=== PATIENT | female | born 1945 | race Caucasian/White ===

== ENCOUNTER → 2017-04-05 | Outpatient (CLI) | payer MEDICARE, MEDICAID | LOC: RAD 10:28 | PROVIDERS: ATTEND Nurse Practitioner Family | DX: Z12.31 Encounter for screening mammogram for malignant neoplasm of breast (principal) | CPT/HCPCS: 77067 ==

== ENCOUNTER → 2017-11-11 | Outpatient (CLI) | payer MEDICARE, MEDICAID ==
--- NOTE | 2017-11-11 13:56 | Diagnostic Imaging Report ---
EXAMINATION: Ultrasound soft tissue head and neck. INDICATION: Pain at base of left skull. FINDINGS: By history, the patient has had treatment for skin cancer near the skull base on the left. On this study, there is no discrete solid or cystic mass in the soft tissues. There is no sign of an abscess either. IMPRESSION: 1. There is no acute abnormality or evidence for a mass lesion. 2. If clinical concern regarding an underlying abnormality persists, then CT of the neck would be recommended for additional study. Dictated by: Dictated on workstation # [id number]
== END ==
LOC: RAD 11:25
PROVIDERS: ATTEND Nurse Practitioner Family
DX: M54.2 Cervicalgia (principal); R51 Headache; Z85.828 Personal history of other malignant neoplasm of skin
CPT/HCPCS: 76536

== ENCOUNTER → 2018-05-12 | Outpatient (CLI) | payer MEDICARE, MEDICAID ==
--- NOTE | 2018-05-12 19:38 | Diagnostic Imaging Report ---
INDICATION: Questionable deodorant artifact in the right axilla. Patient presents for additional views. COMPARISON: Correlation is made with screening mammogram from 04/27/2018. EXAMINATION: 2D and 3D unilateral right diagnostic mammography was performed including MLO 3D and 2D views. FINDINGS: The area of punctate opacity in the right axilla has resolved and most likely represented deodorant artifact. No microcalcifications are seen. IMPRESSION: BI-RADS 2. Additional views are unremarkable. Patient may return to routine annual screening mammography. Dictated by: Dictated on workstation # [id number]
== END ==
LOC: RAD 11:59
PROVIDERS: ATTEND Nurse Practitioner Family
DX: Z12.31 Encounter for screening mammogram for malignant neoplasm of breast (principal)

== ENCOUNTER → 2019-07-04 | Outpatient (CLI) | payer MEDICARE, MEDICAID ==
--- NOTE | 2019-07-04 11:17 | Diagnostic Imaging Report ---
INDICATION: Screening The current study was also evaluated with a Computer Aided Detection (CAD) system. 3-D Tomographic imaging was also performed. INDICATION: Screening. Comparison made with prior examination of 04/27/2018, 04/05/2017 and 01/03/2016 FINDINGS: The fibroglandular tissue is heterogeneously dense bilaterally. There are benign type calcifications. There is no dominant mass, spiculated lesions or suspicious calcination identified. Skin, nipples and axilla are unremarkable. IMPRESSION: Category 2 benign. ACR BI-RADS Category 2: Benign findings. Result letter will be mailed to the patient. Note: At least 10% of breast cancer is not imaged by mammography. Dictated by: Dictated on workstation # [id number]
== END ==
LOC: RAD 09:38
PROVIDERS: ATTEND Nurse Practitioner Family
DX: Z12.31 Encounter for screening mammogram for malignant neoplasm of breast (principal)
CPT/HCPCS: 77067

== ENCOUNTER 2020-06-27 05:34 | Outpatient (RCR) | payer MEDICARE, MEDICAID ==
[~2020-06-27] VITALS: Ht 155 cm; Wt 89.1 kg
[~2020-06-27 05:34] MED LIST: ACHD5005 PO; ALBU1.25 INH; ATOR40TA70 PO; CELE200C PO; CETI10TA49 PO; CYCL10TA9 PO; ESZO1TAB10 PO; FLT11013 IH; OMEG100032 PO; PANT40TA52 PO; UMEC62.5 IH
== END 2020-06-27 11:36 | disposition home or self-care (01) ==
LOC: PREOP 05:34
PROVIDERS: ATTEND Surgery
DX: Z01.812 Encounter for preprocedural laboratory examination (principal); K62.89 Other specified diseases of anus and rectum; Z20.828 Contact with and (suspected) exposure to other viral communicable diseases
CPT/HCPCS: 87635

== ENCOUNTER 2020-07-01 07:32 | Day surgery (SDC) | payer MEDICARE, MEDICAID ==
[~2020-07-01] VITALS: Ht 155 cm; Wt 89.1 kg
[2020-07-01] MEDS ORDERED: LACTATED RINGERS 1,000 ML IV ONE (07:37)
[2020-07-01] MEDS ORDERED: LACTATED RINGERS 1,000 ML IV STA (07:41)
[2020-07-01] MEDS ORDERED: MIDAZOLAM 2 MG/2 ML (VERSED) VIAL ONE (07:54)
[2020-07-01] MEDS ORDERED: PROPOFOL INJECTION 50 ML IV ONE ×3 (07:54→09:24)
[2020-07-01 07:57] VITALS: BP 145/78
--- NOTE | 2020-07-01 08:12 | Progress Note-Pre Operative ---
Pre-Operative Progress Note H&P Reviewed The H&P was reviewed, patient examined and no changes noted. Time Seen by Provider: 08:04 Date H&P Reviewed: Jul 01, 2020 Time H&P Reviewed: 08:05 Pre-Operative Diagnosis: +ColBRENT Sanchez DO Jul 01, 2020 08:12
[2020-07-01 09:35] VITALS: BP 142/61
[2020-07-01 09:40] VITALS: BP 135/65
--- NOTE | 2020-07-01 09:43 | Progress Note-Post Operative ---
Post-Operative Progess Note Surgeon (s)/Pump Technician (s) Surgeon BRENT DERAS DO Pump Technician: YESIKA Montalvo Pre-Operative Diagnosis +Cologuard Post-Operative Diagnosis colon polyps diverticula hemorrhoids Procedure & Operative Findings Date of Procedure 07/01/20 Procedure Performed/Findings colon with hot bx Anesthesia Type IV sedation by OUTSIDE SALES REPRESENTATIVE Estimated Blood Loss Estimated blood loss (mL): scant Specimens/Packing Specimens Removed transverse colon polyp sigmoid polyp BRENT DERAS DO Jul 01, 2020 09:43
--- NOTE | 2020-07-01 09:44 | Endoscopy Discharge Instruct ---
Endo Procedure/Findings Findings 2.: Diverticulosis 3.: Internal Hemorrhoids Discharge Instructions - Activity: You might feel a little sleepy until tomorrow. This is due to the medicine you received to relax you. Until tomorrow, you should: NOT drive a car, operate machinery or power tools. NOT drink any alcoholic beverages. NOT make any important decisions or sign importortant papers. Do not return to work until tomorrow, unless otherwise instructed. Resume previous activities tomorrow. Diet: Start by taking liquids. If you tolerate liquids, advance to solid food. 1.: Colonscopy in 5 years Notify Physician - If you experience excessive bleeding, unusual abdominal pain, fever, or chest pain, contact your doctor immediately. BRENT DERAS DO Jul 01, 2020 09:44
[2020-07-01 09:45] VITALS: BP 116/91
[2020-07-01 09:50] VITALS: BP 116/91
[2020-07-01 10:30] VITALS: BP 138/79
--- NOTE | 2020-07-01 14:57 | Anesthesia-General Post-Op ---
MAC Patient Condition Mental Status/LOC: Same as Preop Cardiovascular: Satisfactory Nausea/Vomiting: Absent Respiratory: Satisfactory Pain: Controlled Complications: Absent Post Op Complications Complications None Follow Up Care/Instructions Patient Instructions None needed. Anesthesiology Discharge Order Discharge Order Patient is doing well, no complaints, stable vital signs, no apparent adverse anesthesia problems. No complications reported per nursing. WILLIAM PADILLA CRNA Jul 01, 2020 14:57
--- NOTE | 2020-07-02 04:02 | OPERATIVE REPORT ---
DATE OF SERVICE: 07/01/2020 PREOPERATIVE DIAGNOSIS: Positive Cologuard. POSTOPERATIVE DIAGNOSES: Colon polyps, diverticula, internal hemorrhoids. PROCEDURE: Colonoscopy with hot biopsy. SURGEON: Gamaliel Reyes DO DRAIN TILER: Angelica Arceo MS3. ANESTHESIA: IV sedation by the CHURN TENDER. SPECIMEN: Transverse colon polyp and the sigmoid colon polyp. BLOOD LOSS: Scant. FLUIDS: Per anesthesia. POSTOPERATIVE CONDITION: Stable. INDICATION FOR PROCEDURE: The patient is a 74-year-old female who had a positive Cologuard and needed a colonoscopy. FINDINGS: The patient had 2 polyps, one in the transverse colon and one in the sigmoid colon, but hot biopsies performed. PROCEDURE NOTE: After informed consent was obtained, the patient was brought to the endoscopy suite, placed in bed in left lateral decubitus position. She was administered IV sedation by the CHURN TENDER who then monitored her vitals the entire time, heart rate, blood pressure and pulse ox and the scope was inserted, pushed all the way into about 160 cm; on the way in, took a picture of the diverticulum, noted a polyp in the ascending colon. Elected to do a hot biopsy of this, then pushed into the cecum, took a picture of appendiceal orifice, noted the ileocecal valve and then slowly withdrew the scope insufflating to look circumferentially at the erazo looking at the cecum, up the ascending colon to the hepatic flexure, then down the transverse colon, splenic flexure, into the descending colon down in the sigmoid. In the sigmoid, saw what looked like a collection of small polyps, did a hot biopsy here, then down into the rectum, retroflexed in rectal vault, saw some minimal internal hemorrhoids, took a picture of this and then removed the scope. The patient tolerated the procedure. She was recovered in endoscopy suite. Job ID: [id number] DocumentID: [id number] Dictated Date: 07/01/2020 17:28:30 Amusement Ride Inspector Date: 07/02/2020 04:02:04 Dictated By: GAMALIEL REYES DO
== END 2020-07-01 10:30 | disposition home or self-care (01) ==
LOC: ENDO 07:32
PROVIDERS: ATTEND Surgery
DX: D12.3 Benign neoplasm of transverse colon (principal); K63.5 Polyp of colon; K57.30 Diverticulosis of large intestine without perforation or abscess without bleeding; K64.8 Other hemorrhoids; K21.9 Gastro-esophageal reflux disease without esophagitis; K62.89 Other specified diseases of anus and rectum; J44.9 Chronic obstructive pulmonary disease, unspecified; E78.5 Hyperlipidemia, unspecified; I10 Essential (primary) hypertension; E66.9 Obesity, unspecified; Z68.37 Body mass index [BMI] 37.0-37.9, adult; F17.210 Nicotine dependence, cigarettes, uncomplicated; Z79.51 Long term (current) use of inhaled steroids

== ENCOUNTER → 2021-02-17 | Outpatient (CLI) | payer MEDICARE, MEDICAID ==
--- NOTE | 2021-02-18 12:50 | Diagnostic Imaging Report ---
INDICATION: Routine screening. Comparison is made with prior mammogram from 07/04/2019 and 04/27/2018. 2-D and 3-D bilateral screening mammography was performed with CAD. Both breasts are heterogeneously dense, limiting the sensitivity of mammography. There are benign calcifications scattered throughout both breasts. No mass or malignant appearing microcalcifications are seen. Axillae are unremarkable. IMPRESSION: BI-RADS Category 2 No mammographic features suspicious for malignancy are identified. ACR BI-RADS Category 2: Benign findings. Result letter will be mailed to the patient. Note: At least 10% of breast cancer is not imaged by mammography. Dictated by: Dictated on workstation # [id number]
== END ==
LOC: CARD 14:30
PROVIDERS: ATTEND Nurse Practitioner Family
DX: Z12.31 Encounter for screening mammogram for malignant neoplasm of breast (principal); I35.2 Nonrheumatic aortic (valve) stenosis with insufficiency
CPT/HCPCS: 77063; 77067; 93306

== ENCOUNTER 2021-05-20 11:00 | Day surgery (SDC) | payer MEDICARE, MEDICAID ==
[~2021-05-20] VITALS: Ht 152 cm; Wt 88.0 kg
[2021-05-20] VITALS (11 sets, daily range): BP systolic 116–185; BP diastolic 57–88
[2021-05-20 09:40] LABS: ALBUMIN 3.9 GM/DL (3.2-4.5); BILIRUBIN,TOTAL 0.5 MG/DL (0.1-1.0); CALCIUM 9.1 MG/DL (8.5-10.1); CREATININE SERUM 0.83 MG/DL (0.60-1.30); POTASSIUM 4.1 MMOL/L (3.6-5.0); TOTAL PROTEIN 6.9 GM/DL (6.4-8.2)
[2021-05-20 09:50] LABS: HEMATOCRIT 46 % (35-52); HEMOGLOBIN 14.8 g/dL (11.5-16.0); MEAN CORPUSCULAR HEMOGLOBIN 31 pg (25-34); MEAN CORPUSCULAR HGB CONC 32 g/dL (32-36); MEAN CORPUSCULAR VOLUME 98 fL (80-99); MEAN PLATELET VOLUME 11.7 fL (9.0-12.2); PLATELET COUNT 206 10^3/uL (130-400); WHITE BLOOD COUNT 10.9 10^3/uL (4.3-11.0)
[2021-05-20 09:53] LABS: INR 0.9 (0.8-1.4); PROTHROMBIN TIME PATIENT 12.6 SEC (12.2-14.7)
[~2021-05-20 11:00] MED LIST changes: +CARB15DR OU; +DICL20GE TP; +FLUT9.9S NSEACH; +HEParin (CATH LAB) 2,000 ML IV ONE; +LEVA1.2543 NEB; +LIDOCAINE 1% INJ 20 ML 20 ML VIAL ONE; +LOSA50TA63 PO; +NF-XOP-HFA INH; +NS IV 1000 ML 1,000 ML IV SCH; +NS IV 1000 ML 1,000 ML ONE; +OLOP5DRO13 OU; +PANT20TA18 PO
--- NOTE | 2021-05-20 11:25 | Cardiac Procedure Note-CS/ASA ---
Pre-Procedure Note Pre-Op Procedure Note H&P Reviewed The H&P was reviewed, patient examined and no changes noted. Date H&P Reviewed: May 20, 2021 Time H&P Reviewed: 10:30 Conscious Sedation Pre-Proced Time 10:30 ASA Score 4 For ASA 3 and 4: Consider anesthesia and medical clearance. Also, for patients with a history of failed moderate sedation consider anesthesia. Airway Lungs Heart ASA score ASA 1: a normal healthy patient ASA 2: a patient with a mild systemic disease (mid diabetes, controlled hypertension, obesity ASA 3: a patient with a severe systemic disease that limits activity (angina, COPD, prior Myocardial infarction) ASA 4: a patient with an incapacitating disease that is a constant threat to life (CHF, renal failure) ASA 5: a moribund patient not expected to survive 24 hrs. (ruptured aneurysm) ASA 6: a declared brain- patient whose organs are being harvested. For emergent operations, add the letter E after the classification Mallampati Classification Grade 2 Sedation Plan Analgesia, Amnesia, Plan communicated to team members, Discussed options with patient/fam, Discussed risks with patient/fam The patient is an appropriate candidate to undergo the planned procedure, sedation, and anesthesia. The patient immediately re-assessed prior to indication. ELIZABET PRATHER MD FACP FAC CCDS May 20, 2021 11:25
[2021-05-20] MEDS ORDERED: FURO40TA4 PO (11:29)
[2021-05-20] MEDS ORDERED: ASPI-999 PO (11:29)
[2021-05-20] MEDS ORDERED: POTA10TA36 PO (11:29)
[2021-05-20] MEDS ORDERED: NS IV 1000 ML 1,000 ML IV SCH (11:30)
[2021-05-20] MEDS ORDERED: PATIENT MAY USE OWN MEDS, ALL PO SCH (11:30)
--- NOTE | 2021-05-20 11:30 | Discharge Inst-Cardiology ---
Discharge Inst-Cardiac Discharge Medications New Medications: Aspirin (Aspirin) 81 Mg Tab.chew 81 MG PO DAILY for 30 Days, #30 TAB 3 Refills Furosemide (Furosemide) 40 Mg Tablet 40 MG PO DAILY, #30 TAB 3 Refills Potassium Chloride (Potassium Chloride) 10 Meq Tab.er.prt 10 MEQ PO DAILY, #30 TAB 3 Refills Continued Medications: Atorvastatin Calcium (Atorvastatin Calcium) 40 Mg Tablet 40 MG PO HS, TAB Carboxymethylcellulose Sodium (Refresh Tears) 15 Ml Drops 1-2 DROP OU UD PRN for DRY EYES, DROPS Celecoxib (Celebrex) 200 Mg Capsule 200 MG PO DAILY, CAP Cetirizine HCl (Zyrtec) 10 Mg Tablet 10 MG PO DAILY, TAB Diclofenac Sodium (Voltaren Arthritis Pain) 20 Gm Gel..gram. 1 APPLIC TP Q8H PRN for PAIN-BREAKTHROUGH, EA Fluticasone Propionate (Flovent Hfa 110 mcg) 1 Ea Aero 2 EA IH BID, EA Fluticasone Propionate (Flonase Allergy Relief) 9.9 Ml [place].susp 1 SPRAY NSEACH DAILY, EACH Hydrocodone/Acetaminophen (Hydrocodone-Acetamin 5-325 mg) 1 Each Tablet 0.5 EACH PO BID PRN for PAIN-MILD (1-4), TAB Levalbuterol HCl (Levalbuterol HCl) 1.25 Mg/3 Ml Vial.neb 1.25 MG NEB Q8H PRN for SHORTNESS OF BREATH, EA Levalbuterol Tartrate (Xopenex Hfa) 15 Gm Hfa.aer.ad 1 PUFF INH Q6H PRN for SHORTNESS OF BREATH, GM Losartan Potassium (Losartan Potassium) 50 Mg Tablet 50 MG PO DAILY, TAB Olopatadine HCl (Olopatadine HCl) 5 Ml Drops 1 DROP OU BID PRN for ALLERGY SYMPTOMS, DROPS Pantoprazole Sodium (Pantoprazole Sodium) 20 Mg Tablet.dr 20 MG PO DAILY, TAB Umeclidinium Alpha (Incruse Ellipta) 62.5 Mcg Blst.w.dev 1 PUFF IH DAILY, ELIZABET CYR MD [facility] CCDS May 20, 2021 11:30
--- NOTE | 2021-05-20 11:30 | Discharge Inst-Post CATH ---
Discharge Inst-CATH/EP Post Cardiac Cath/EP D/C Inst Follow Up/Plan F/u with Dr Becerra in one week ACTIVITY * Go Home directly and rest. * Limit activity of the leg (or wrist if it was used) for 7 days including aerobics, swimming, jogging, bicycling, etc. * Restrict stair-climbing for 7 days if possible, if not, climb up with your non-cath leg, then bring together on the same step. * Avoid lifting, pushing, pulling or excessive movement of the affected e xtremity for 7 days. * Customary sexual activity may be resumed after 2 days-use caution not to use a position that strains or causes pain to the affected extremity. * No driving for 24 hours. * NO SMOKING. * Avoid straining for bowel movements for 7 days. * Gentle walking on level ground is allowed. * Returning to work will depend on the type of procedure and the results. Your doctor will discuss this with you. CALL YOUR DOCTOR FOR ANY OF THE FOLLOWING: *If bleeding from the puncture site occurs- Apply gentle pressure to site with clean cloth and call your doctor or EMS. * If a knot or lump forms under the skin, increases in size, or causes pain. * If bruising appears to be worsening or moving further down your leg instead of disappearing. * Temperature above 101 F. CARE OF YOUR GROIN INCISION; * Bruising or purple discoloration of the skin near the puncture site is common. * You may shower only, no bathtub bathing for 5 days. Be careful to avoid slipping as your leg may feel stiff. * If a closure device was used on your femoral artery, please see the attached guide regarding care of the device and your leg. * Leave dressing on FOR 24 hours. CARE OF YOUR WRIST INCISION; * Bruising or purple discoloration of the skin near the puncture site is common. * You may shower. * DO NOT submerge wrist. * Leave dressing on FOR 24 hours. ELIZABET BECERRA MD FACP FAC CCDS May 20, 2021 11:30
--- NOTE | 2021-05-20 14:09 | CARDIAC CATHETERIZATION ---
DATE OF SERVICE: 05/20/2021 CARDIAC CATHETERIZATION REPORT INDICATION FOR PROCEDURE: The patient is a 75-year-old lady, who has shortness of breath that has been progressive. Echocardiography has indicated severe aortic stenosis with a valve area of approximately 0.9 cm2 and a mean gradient across the aortic valve approximately 40 mmHg. Because of progressive symptoms, cardiac catheterization was carried out today after having obtained an informed consent. DESCRIPTION OF PROCEDURE: She was brought to the cardiac catheterization laboratory in a fasting state. Right groin was prepared and draped in the usual sterile fashion. Lidocaine 1% was used for local anesthesia. Modified Seldinger technique was used to advance a 7-Filipino sheath in the right femoral vein and a 5-Filipino sheath in the right femoral artery. Angiography of the right femoral artery was carried out through the sheath. We used a 7-Filipino [place] catheter to carry out right heart catheterization and to measure oxygen saturation in the various right heart chambers. The cardiac output was also measured. The [place] catheter was then removed. We used a 5-Filipino pigtail catheter to carry out left heart catheterization. Left ventricular angiography was performed. We then pulled back across the aortic valve. The catheter was removed. We used a 5-Filipino JL4 catheter for left coronary angiography, 5-Filipino JR4 catheter for right coronary angiography. At the end of the procedure, Mynx was used to achieve arterial hemostasis and manual pressure was used to achieve venous hemostasis following sheath removal. She tolerated the procedure well. HEMODYNAMICS: The right atrial mean pressure is 17 mmHg. Pulmonary artery pressure is 52/23 with a mean of 34 mmHg. Mean pulmonary wedge pressure is 20 mmHg. Left ventricular pressure is 190/30. Ascending aortic pressure on pullback is 152/85 with a mean 82 mmHg. Cardiac output by thermodilution is 4.4. Cardiac index by thermodilution is 2.39. Aortic valve area is approximately 0.7 squared cm. Pulmonary vascular resistance is 4.57 Wood units. LEFT VENTRICULAR ANGIOGRAPHY: Left ventricular angiography was carried out in the right anterior oblique projection. Global left ventricular systolic function appears normal and ejection fraction is approximately 60%. CORONARY ANGIOGRAPHY: Left main coronary artery, left anterior descending and left circumflex artery do not exhibit angiographically significant disease. Right coronary artery is small in caliber and has stenosis of up to approximately 50% in its proximal, mid and distal portions. CONCLUSIONS: 1. Severe aortic stenosis. 2. Elevated right heart pressures and pulmonary hypertension, probably due to left heart failure as indicated by elevated pulmonary wedge pressure. 3. Normal global left ventricular systolic function with an ejection fraction of approximately 60%. 4. Elevated left ventricular end-diastolic pressure (30 mmHg). 5. Coronary artery disease primarily consisting of approximately 50% stenosis of the right coronary. The other coronary vessels have mild plaque. DISCUSSION AND RECOMMENDATIONS: Based on the results of the study, we are referring for consideration of aortic valve replacement. To treat congestive heart failure, we are initiating therapy with furosemide 40 mg a day along with potassium 10 mEq a day. Also, given moderate coronary artery disease, we are initiating therapy with aspirin 81 mg a day. Close outpatient followup is advised. Job ID: [id number] DocumentID: [id number] Dictated Date: 05/20/2021 11:38:44 Sand System Operator Date: 05/20/2021 14:07:36 Dictated By: ELIZABET PRATHER MD, MA, FACP, FACC,
== END 2021-05-20 14:45 | disposition home or self-care (01) ==
LOC: SDC 11:55 → CATH 14:45
PROVIDERS: ATTEND Internal Medicine Cardiovascular Disease
DX: I35.2 Nonrheumatic aortic (valve) stenosis with insufficiency (principal); I11.0 Hypertensive heart disease with heart failure; I50.9 Heart failure, unspecified; E78.5 Hyperlipidemia, unspecified; J44.9 Chronic obstructive pulmonary disease, unspecified; I27.20 Pulmonary hypertension, unspecified; I25.10 Atherosclerotic heart disease of native coronary artery without angina pectoris; F17.210 Nicotine dependence, cigarettes, uncomplicated; Z91.048 Other nonmedicinal substance allergy status; Z85.828 Personal history of other malignant neoplasm of skin; Z79.899 Other long term (current) drug therapy; Z11.2 Encounter for screening for other bacterial diseases
CPT/HCPCS: 80053; 80061; 85027; 85610; 85730; 87081; 93460; C1760; C1894 ×2; 36415

== ENCOUNTER → 2021-05-26 | Outpatient (CLI) | payer MEDICARE, MEDICAID ==
[~2021-05-26] MED LIST changes: +ASPI-999 PO; +FURO40TA4 PO; -HEParin (CATH LAB) 2,000 ML IV ONE; -LIDOCAINE 1% INJ 20 ML 20 ML VIAL ONE; -NS IV 1000 ML 1,000 ML IV SCH; -NS IV 1000 ML 1,000 ML ONE; +POTA10TA36 PO
[2021-05-26 15:12] LABS: CALCIUM 9.8 MG/DL (8.5-10.1); CREATININE SERUM 0.78 MG/DL (0.60-1.30); MAGNESIUM 1.9 MG/DL (1.6-2.4); POTASSIUM 4.3 MMOL/L (3.6-5.0)
== END ==
LOC: LAB 14:24
PROVIDERS: ATTEND Internal Medicine Cardiovascular Disease
DX: I35.0 Nonrheumatic aortic (valve) stenosis (principal)
CPT/HCPCS: 36415; 80048; 83735

== ENCOUNTER 2021-06-04 13:33 | Emergency (ER) | payer MEDICARE, MEDICAID ==
[~2021-06-04] VITALS: Ht 61 cm; Wt 85.3 kg
--- NOTE | 2021-06-04 14:19 | ED Lower Extremity ---
General Stated Complaint: POSSIBLE BLOOD CLOT R LEG Source: patient Exam Limitations: no limitations History of Present Illness Date Seen by Provider: Jun 04, 2021 Time Seen by Provider: 14:05 Initial Comments Patient is a 75-year-old female who presents to the emergency department with a chief complaint of right groin, thigh and popliteal pain. She states onset today. Significant pain with any movement of the right groin/leg. No history of DVT in the past. Patient was recently found to have critical aortic stenosis and is pending aortic valve replacement. She is not on blood thinners. She had a heart cath about a week and a half ago. She states the bruising in her groin is much improved. She denies fevers or chills. No increasing or worsening shortness of breath. She does have a history of COPD. No chest pain. No abdominal pain, nausea, vomiting or diarrhea. No urinary complaints. She called her interventional radiology tech office today and they recommended she come to the emergency room for ultrasound. All other review of systems reviewed and negative except as stated. Onset: yesterday Severity: moderate Pain/Injury Location: right leg Allergies and Home Medications Allergies Coded Allergies: No Known Drug Allergies (Unverified , 06/25/20) Patient Home Medication List Home Medication List Reviewed: Yes Aspirin (Aspirin) 81 Mg Tab.chew, 81 MG PO DAILY Prescribed by: ELIZABET PRATHER on 05/20/21 1129 Atorvastatin Calcium (Atorvastatin Calcium) 40 Mg Tablet, 40 MG PO HS, (Reported) Entered as Reported by: LOU HAYNES on 06/25/20 1154 Carboxymethylcellulose Sodium (Refresh Tears) 15 Ml Drops, 1-2 DROP OU UD PRN for DRY EYES, (Reported) Entered as Reported by: JEANA BENITES on 05/20/21 0950 Celecoxib (Celebrex) 200 Mg Capsule, 200 MG PO DAILY, (Reported) Entered as Reported by: LOU HAYNES on 06/25/20 1154 Cetirizine HCl (Zyrtec) 10 Mg Tablet, 10 MG PO DAILY, (Reported) Entered as Reported by: OLU HAYNES on 06/25/20 1154 Diclofenac Sodium (Voltaren Arthritis Pain) 20 Gm Gel..gram., 1 APPLIC TP Q8H PRN for PAIN-BREAKTHROUGH, (Reported) Entered as Reported by: JEANA BENITES on 05/20/21 0955 Fluticasone Propionate (Flovent Hfa 110 mcg) 1 Ea Aero, 2 EA IH BID, (Reported) Entered as Reported by: JEANA BENITES on 05/20/21 0950 Fluticasone Propionate (Flonase Allergy Relief) 9.9 Ml [place].susp, 1 SPRAY NSEACH DAILY, (Reported) Entered as Reported by: JEANA BENITES on 05/20/21 0950 Furosemide (Furosemide) 40 Mg Tablet, 40 MG PO DAILY Prescribed by: ELIZABET PRATHER on 05/20/21 112 Hydrocodone/Acetaminophen (Hydrocodone-Acetamin 5-325 mg) 1 Each Tablet, 0.5 EACH PO BID PRN for PAIN-MILD (1-4), (Reported) Entered as Reported by: LOU HAYNES on 06/25/20 1154 Levalbuterol HCl (Levalbuterol HCl) 1.25 Mg/3 Ml Vial.neb, 1.25 MG NEB Q8H PRN for SHORTNESS OF BREATH, (Reported) Entered as Reported by: JEANA BENITES on 05/20/21 0950 Levalbuterol Tartrate (Xopenex Hfa) 15 Gm Hfa.aer.ad, 1 PUFF INH Q6H PRN for SHORTNESS OF BREATH, (Reported) Entered as Reported by: JEANA BENITES on 05/20/21 0950 Losartan Potassium (Losartan Potassium) 50 Mg Tablet, 50 MG PO DAILY, (Reported) Entered as Reported by: JEANA BENITES on 05/20/21 0950 Olopatadine HCl (Olopatadine HCl) 5 Ml Drops, 1 DROP OU BID PRN for ALLERGY SYMPTOMS, (Reported) Entered as Reported by: JEANA BENITES on 05/20/21 0950 Pantoprazole Sodium (Pantoprazole Sodium) 20 Mg Tablet.dr, 20 MG PO DAILY, (Reported) Entered as Reported by: JEANA BENITES on 05/20/21 0950 Potassium Chloride (Potassium Chloride) 10 Meq Tab.er.prt, 10 MEQ PO DAILY Prescribed by: ELIZABET PRATHER on 05/20/21 112 Umeclidinium [place] (Incruse Ellipta) 62.5 Mcg Blst.w.dev, 1 PUFF IH DAILY, (Reported) Entered as Reported by: LOU HAYNES on 06/25/20 2072 Review of Systems Constitutional: see HPI EENTM: no symptoms reported, other (sinus congestion) Respiratory: no symptoms reported, cough Cardiovascular: no symptoms reported Musculoskeletal: muscle pain (Right thigh) Skin: other (Bruising right groin improving) Psychiatric/Neurological: No Symptoms Reported All Other Systems Reviewed Negative Unless Noted: Yes Past Slqxeis-Cimtnl-Dezhhx Hx Immunizations Up To Date Tetanus Booster (TDap): Unknown Seasonal Allergies Seasonal Allergies: Yes Past Medical History Surgeries: Yes (d&c, exploratory lap, left breast, foot sx, hemorrhoid, anal fistula) Respiratory: Yes COPD Currently Using CPAP: No Currently Using BIPAP: No Cardiac: Yes High Cholesterol, Hypertension Neurological: No Female Reproductive Disorders: Denies Genitourinary: No Gastrointestinal: Yes (hx rectal fistula, rectal pain) Gastroesophageal Reflux Musculoskeletal: Yes (joint pain) Arthritis, Chronic Back Pain Endocrine: No HEENT: Yes (cataracts removed) Cancer: Yes Skin Psychosocial: No Integumentary: No Blood Disorders: No Physical Exam Vital Signs Vital Signs - First Documented 06/04/21 14:00 Temp 36.0 Pulse 79 Resp 13 B/P (MAP) 155/88 (110) Pulse Ox 96 O2 Delivery Room Air Capillary Refill : Height, Weight, BMI Height: 5'0.00" Weight: 178lbs. oz. 80.958436tl; 38.08 BMI Method: General Appearance: WD/WN, no apparent distress Neck: full range of motion, normal inspection Cardiovascular: regular rate, rhythm, systolic murmur (Harsh aortic stenosis murmur through out the precordium) Respiratory: lungs clear, normal breath sounds, no respiratory distress, no accessory muscle use Gastrointestinal: non tender, soft Hips: bilateral hip non-tender, bilateral hip normal inspection; left hip limited range of motion Legs: left leg soft tissue tenderness (Patient has significant tenderness to the right groin, right medial thigh, right popliteal space. She even has a little tenderness to calf squeeze on the right. Negative Homans' sign; improving ecchymosis noted to the right medial thigh) Knees: bilateral knee non-tender, bilateral knee normal inspection, bilateral knee normal range of motion, bilateral knee no evidence of injury Ankles: bilateral ankle non-tender, bilateral ankle normal inspection, bilateral ankle normal range of motion, bilateral ankle no evidence of injury Feet: bilateral foot non-tender, bilateral foot normal inspection, bilateral foot normal range of motion, bilateral foot no evidence of injury Neurologic/Psychiatric: alert, normal mood/affect, oriented x 3 Skin: normal color, warm/dry Progress/Results/Core Measures Results/Orders My Orders Orders - TANYA HEMPHILL MD Us Venous Lower Ext Rt (06/04/21 14:09) Us Right Low Ext [id number] (06/04/21 14:36) Vital Signs/I&O 06/04/21 14:00 Temp 36.0 Pulse 79 Resp 13 B/P (MAP) 155/88 (110) Pulse Ox 96 O2 Delivery Room Air Diagnostic Imaging Diagonstic Imaging: CT Comments [facility] [place], [place] NAME: CIRILO MANRIQUE J MED REC#: [id number] PT STATUS: REG ER : 1945 PHYSICIAN: ATNYA HEMPHILL MD ADMIT DATE: 06/04/21/ER Draft Date of Exam:06/04/21 US VENOUS LOWER EXT RT EXAM: US VENOUS LOWER EXT RT INDICATION: swelling pain and palpable vein in prox right thigh COMPARISON: None. TECHNIQUE: Duplex, puckett-scale and color-flow imaging of the right lower extremity venous system was performed FINDINGS: The right common femoral vein, superficial femoral vein, profunda femoris, and popliteal veins are normal. These vessels show normal compressibility, color flow, and doppler augmentation. The deep calf veins demonstrate no distinct intraluminal thrombus where seen. IMPRESSION: No evidence of deep venous thrombosis in the right lower extremity. Dictated on workstation # [id number] Dict: 06/04/21 1508 Trans: 06/04/21 1509 CVB [id number] Interpreted by: CYNTHIA MONSON MD Electronically signed by: [facility] [place], [place] NAME: CIRILO MANRIQUE MED REC#: [id number] PT STATUS: REG ER : 1945 PHYSICIAN: TANYA HEMPHILL MD ADMIT DATE: 06/04/21/ER Draft Date of Exam:06/04/21 US RIGHT LOW EXT [id number] EXAM: US RIGHT LOW EXT [id number] INDICATION: Right groin pain post catheterization. COMPARISON: Ultrasound venous Doppler right lower extremity also performed today. FINDINGS: No fluid collection or evidence of pseudoaneurysm in the right groin. The right common femoral, profunda femoral and superficial femoral arteries demonstrate normal waveforms and peak systolic velocities. IMPRESSION: No evidence of a pseudoaneurysm in the right groin. Dictated on workstation # [id number] Dict: 06/04/21 1509 Trans: 06/04/21 1514 CV [id number] Interpreted by: CYNTHIA MONSON MD Electronically signed by: Counseling-Symptomatic: 3-10 Minutes Follow-up with PCP to: Discuss Further Options Departure Impression Primary Impression: Right leg pain Disposition: 01 HOME, SELF-CARE Condition: Stable Departure-Patient Inst. Decision time for Depature: 15:31 Referrals: CHRISTOFER LAUREANO DO (PCP) Primary Care Physician KEVIN BLOOM APRN (Family) Primary Care Physician Patient Instructions: Acute Pain, Adult Add. Discharge Instructions: You can use a warm compress to the right groin and other areas of pain if needed to help improve your symptoms. You can take your iqwc-uoh-zvockpn pain medication/hydrocodone every 6 hours for pain as well. Do not drive and take this medication. Try and take it easy for the next 24 to 48 hours. Follow-up with your primary care physician and your interventional radiology tech as scheduled. Return to the emergency department for any new, concerning or emergent complaints. TANYA HEMPHILL MD Jun 04, 2021 14:19
--- NOTE | 2021-06-04 15:10 | Diagnostic Imaging Report ---
EXAM: US VENOUS LOWER EXT RT INDICATION: swelling pain and palpable vein in prox right thigh COMPARISON: None. TECHNIQUE: Duplex, puckett-scale and color-flow imaging of the right lower extremity venous system was performed FINDINGS: The right common femoral vein, superficial femoral vein, profunda femoris, and popliteal veins are normal. These vessels show normal compressibility, color flow, and doppler augmentation. The deep calf veins demonstrate no distinct intraluminal thrombus where seen. IMPRESSION: No evidence of deep venous thrombosis in the right lower extremity. Dictated by: Dictated on workstation # [id number]
--- NOTE | 2021-06-04 15:14 | Diagnostic Imaging Report ---
EXAM: US RIGHT LOW EXT [id number] INDICATION: Right groin pain post catheterization. COMPARISON: Ultrasound venous Doppler right lower extremity also performed today. FINDINGS: No fluid collection or evidence of pseudoaneurysm in the right groin. The right common femoral, profunda femoral and superficial femoral arteries demonstrate normal waveforms and peak systolic velocities. IMPRESSION: No evidence of a pseudoaneurysm in the right groin. Dictated by: Dictated on workstation # [id number]
[2021-06-04 15:38] VITALS: BP 155/88
== END 2021-06-04 15:45 | disposition home or self-care (01) ==
LOC: EDUNIT# 13:33 → ER 13:34
DX: M79.604 Pain in right leg (principal); J44.9 Chronic obstructive pulmonary disease, unspecified; I10 Essential (primary) hypertension; K21.9 Gastro-esophageal reflux disease without esophagitis; G89.29 Other chronic pain; M54.9 Dorsalgia, unspecified; E78.00 Pure hypercholesterolemia, unspecified; Z79.891 Long term (current) use of opiate analgesic; Z79.82 Long term (current) use of aspirin; Z79.899 Other long term (current) drug therapy
CPT/HCPCS: 93926

== ENCOUNTER → 2022-07-28 | Outpatient (CLI) | payer MEDICARE, MEDICAID ==
[~2022-07-28] MED LIST changes: +CYCL10TA25 PO; -CYCL10TA9 PO; -OLOP5DRO13 OU; +OLOP5DRO26 OU; +POTA-177 PO; -POTA10TA36 PO
--- NOTE | 2022-07-28 14:56 | Diagnostic Imaging Report ---
INDICATION: Postmenopausal screening COMPARISON: 06/27/2015 FINDINGS: AP Spine L1-L4: [BMD (g/cm2): 1.101] [T-Score: -0.8] [Z-Score: 0.4] [BMD Previous: 1.039] [BMD % Change: 6.0] LT Hip Neck: [BMD (g/cm2): 0.948] [T-Score: -0.6] [Z-Score: 1.0] LT Hip Total: [BMD (g/cm2):0.945] [T-Score:-0.5] [Z-Score: 0.9] [BMD Previous: 0.971] [BMD % Change: -2.7] RT Hip Neck: [BMD (g/cm2):0.820] [T-Score:-1.6] [Z-Score:0.1] RT Hip Total: [BMD (g/cm2):0.859] [T-score:-1.2] [Z-Score:0.2] [BMD Previous:0.899] [BMD % Change:-5.1] *Indicates significant change from prior examination based on 95% confidence level. World Health Organization criteria for BMD interpretation classify patients as Normal (T-score at or above -1.0), Osteopenic (T-score between -1.0 and -2.5) or Osteoporotic (T-score at or below -2.5). LIMITATIONS AND MODIFICATION: None. FRACTURE RISK (FRAX SCORE): The ten year probability of (%): Major Osteoporotic Fracture: [12.1] Hip Fracture: [4.0] IMPRESSION: 1. Osteopenia (Low bone mass). 2. Since the previous exam, there has been mixed interval change. Lumbar spine shows significant interval increase in bone mineral density, whereas the hips show significant interval decrease in bone mineral density. 3. See below National Osteoporosis Foundation guidelines on when to potentially initiate pharmacologic therapy. Based on the National Osteoporosis Foundation Guidelines, pharmacologic treatment should be initiated in any of the following, unless clinical conditions suggest otherwise: * Any patient with prior fragility fracture of the hip or vertebrae. A spine fracture indicates 5X risk for subsequent spine fracture and 2X risk for subsequent hip fracture. * Osteoporosis (T-score <-2.5). * Postmenopausal women and men age 50 and older with low bone mass/osteopenia (T-score between -1.0 and -2.5) by DXA and 10-year major osteoporotic fracture greater than 20% or a 10-year probability of hip fracture greater than 3%. These fracture risks are supplied above in the FRAX score, if applicable. * Clinician judgement and/or patient preferences may indicate treatment for people with 10-year fracture probabilities above or below these levels. Dictated by: Dictated on workstation # [id number]
--- NOTE | 2022-07-29 14:13 | Diagnostic Imaging Report ---
INDICATION: 3-D bilateral screening mammogram with CAD. CAD is utilized. The current study was also evaluated with a Computer Aided Detection (CAD) system. This study was compared to the prior exams of 02/17/2021, 07/04/2019 and 04/27/1918. At this time there are no current complaints. The current study was also evaluated with a Computer Aided Detection (CAD) system. FINDINGS: The fibroglandular tissue in both breasts is heterogeneously dense. This does limit the sensitivity of this exam. Overall, there does not appear to have been any significant change when compared to the prior study. No primary or secondary sign of malignancy is noted. The stereotactic clip in the left breast seen previously is again evident. IMPRESSION: There is no radiographic evidence for malignancy. ACR BI-RADS Category 1: Negative. Result letter will be mailed to the patient. Note: At least 10% of breast cancer is not imaged by mammography. Dictated by: Dictated on workstation # [id number]
== END ==
LOC: RAD 14:00
PROVIDERS: ATTEND Nurse Practitioner Family
DX: Z13.820 Encounter for screening for osteoporosis (principal); Z12.31 Encounter for screening mammogram for malignant neoplasm of breast; M85.80 Other specified disorders of bone density and structure, unspecified site; Z78.0 Asymptomatic menopausal state
CPT/HCPCS: 77063; 77067; 77080